=== PATIENT | male | born 1965 | race Caucasian/White ===

== ENCOUNTER 2025-02-24 19:32 | Emergency (ER) | payer BC, SELFPAY ==
[2025-02-24 19:35] VITALS: BP 140/90
--- NOTE | 2025-02-24 20:15 | ED.GENMED ---
History of Present Illness
General
Chief Complaint: Skin Surface Trauma
Source: patient
Exam Limitations: none
Time Seen by Provider: 02/24/25 19:51
Nursing documentation reviewed up to this point in time: agreed with
History of Present Illness
History of Present Illness:
60-year-old male with history as noted presents for evaluation of laceration. Patient was working with a ceiling fan which came loose and struck him in the left wrist. Sustained a laceration. Come to the ER for evaluation. Tetanus up-to-date.
Past History
Past History
ED Past Medical History: Other (Migraines)
Social History
Tobacco: Non-smoker
Alcohol: None
Drug: None
Personal:
Living: with family
Employment: Employed
Review of Systems
Review of Systems
All Other Systems: ROS reviewed and negative except as documented in HPI and ROS
Skin: Reports other (Skin laceration)
Phy Exam
Physical Exam
Physical Exam:
General: Well appearing and non-toxic
HEENT: protecting airway
Neck: appears supple
CV: No evidence of cyanosis
Resp: No accessory muscle use
Abd: Non-distended
Extremities: No deformities, motor and sensory intact in the left hand with good strength on extension and flexion of the digits
Neuro: Alert
Psych: Normal affect
Skin: Patient has 2.5 cm linear laceration ulnar aspect of the dorsum of the left wrist; explored to base no foreign body, no exposed tendon on range of motion in the wrist and fingers
Scores
Heart Failure Risk
Heart Failure Risk Score: Not Applicable
Heart Score for Chest Pain Patients
STEMI patient?: Not applicable
Withdrawal Assessment of Alcohol
Withdrawal Assessment Completed?: Not applicable
Course
Vital Signs
Initial and Last Documented VS:
Initial Vital Signs
Temp Pulse Resp BP Pulse Ox
36.7 C 82 20 140/90 95
02/24/25 19:35 02/24/25 19:35 02/24/25 19:35 02/24/25 19:35 02/24/25 19:35
Last Documented Vital Signs
Temp Pulse Resp BP Pulse Ox
36.7 C 82 20 140/90 95
02/24/25 19:35 02/24/25 19:35 02/24/25 19:35 02/24/25 19:35 02/24/25 19:35
Procedures
Laceration Closure
Left Wrist:
Status of Wound: clean
Size of Wound in cm: 2.5
Description of Wound Edges: sharp
Preparation: cleaned with saline
Anesthesia: 1% Lidocaine with epi
Revision/Debridement: routine- no revision
Wound exploration: explored to base- no FB and no tendon involvement
Type of Closure: layered closure
Skin Closure Material: 4-0 nylon (3) and 4-0 chromic gut (1)
Number of sutures: 4
MDM/Problems Addressed
Differential Diagnosis Includes:
Laceration
MDM/Problems Addressed:
60-year-old male presents with wrist laceration as described. No foreign body, no tendon involvement. Up-to-date on tetanus. Repaired as documented in procedure note. Clean dressing applied. Stable for discharge. Advised to follow-up in 7 to
10 days for suture removal. Spoke about return precautions. All questions answered.
*Pulse Oximetry
Patient hypoxic: no
*Critical Care Note
Total Time (30-74mins, 75-104mins- exclusive of procedures): Not Applicable
Data Reviewed
Source: patient
ED Attending Note
-
Portions of this chart may have been created with voice recognition software.� Occasional wrong word or��sound alike� substitutions may have occurred due to the inherent limitations of voice recognition software.
Discharge Plan
Departure
Patient Disposition: Home (Routine Discharge)
Date of Disposition: 02/24/25
Time of Disposition: 20:17
Patient with high blood pressure during this ER visit?: No
Discharge Problem:
Laceration
Instructions: Laceration Repair With Stitches (DC)
Prescriptions:
No Action
sumatriptan succinate [Imitrex] 6 MG/0.5 ML/KIT pen injector
6 mg SQ DAILY PRN (Reason: migraine) Qty: 7 0RF
Activity Restrictions/Additional Instructions:
You must have your stitches removed in 7 to 10 days. You can either follow-up with your primary doctor, go to urgent care, or return here to the emergency room to have your stitches removed. If you notice any signs of infection including redness,
swelling, drainage, increased pain, fever you should return to the emergency room immediately for reassessment.
Interventions
Interventions:
*Risk Screen - Suicide Last Done: 02/24/25 19:35
*Neglect/Abuse Screening Last Done: 02/24/25 19:35
Discharge Date and Time
Print Language: KHMER
--- NOTE | 2025-02-24 22:56 | EDRN ---
Pt seen and D/C d by provider without RN involvement
== END 2025-02-24 20:28 | disposition home or self-care (01) ==
LOC: EMR 19:32
PROVIDERS: EMERGENCY PHYSICIAN Emergency Medicine; FAMILY PHYSICIAN Family Medicine
DX: S61.512A Laceration without foreign body of left wrist, initial encounter (principal); W20.8XXA Other cause of strike by thrown, projected or falling object, initial encounter; G43.909 Migraine, unspecified, not intractable, without status migrainosus; K21.9 Gastro-esophageal reflux disease without esophagitis; N40.0 Benign prostatic hyperplasia without lower urinary tract symptoms
CPT/HCPCS: 99282; 12041